=== PATIENT | male | born 1990 | race Caucasian/White ===

== ENCOUNTER 2018-04-29 07:44 | Day surgery (SDC) | payer OTHER ==
[~2018-04-29] VITALS: Ht 170.2 cm; Wt 99.8 kg
[2018-04-29 08:30] VITALS: BP 120/75
[2018-04-29 08:41] LABS: microscopic required? NO
[2018-04-29 08:50] LABS: BASOPHIL % 0.4 % (0-2); PLATELET COUNT 199 x10^3mcL (130-400); RED CELL DISTRIBUTION WIDTH 13.8 % (11.5-14.5)
[2018-04-29 08:58] LABS: UA SPECIFIC GRAVITY 1.025 (1.005-1.035); urine erythrocyte NEGATIVE (NEGATIVE)
[2018-04-29 09:33] LABS: CALCIUM 9.1 mg/dL (8.5-10.1); CARBON DIOXIDE 33.3 mmol/L (21-32); CHLORIDE SERUM 103 mmol/L (98-107); CREATININE SERUM 1.2 mg/dL (0.7-1.3); GFR1 > 60 mL/min; GLUCOSE SERUM 99 mg/dL (74-106); POTASSIUM SERUM 4.1 mmol/L (3.5-5.1); SODIUM SERUM 142 mmol/L (136-145)
[2018-04-29 14:33] VITALS: BP 119/60
== END 2018-04-29 12:55 | disposition home or self-care (01) ==
LOC: DS 07:44
PROVIDERS: Neuromusculoskeletal Medicine, Sports Medicine
DX: S66.222A Laceration of extensor muscle, fascia and tendon of left thumb at wrist and hand level, initial encounter (principal); S61.012A Laceration without foreign body of left thumb without damage to nail, initial encounter; X58.XXXA Exposure to other specified factors, initial encounter; Y93.89 Activity, other specified; Y92.89 Other specified places as the place of occurrence of the external cause; Y99.8 Other external cause status; Z98.890 Other specified postprocedural states; Z79.899 Other long term (current) drug therapy
CPT/HCPCS: J0690; J2175; J2250; J3010; J3490